=== PATIENT | female | born 1965 | race African-American/Black ===

== ENCOUNTER 2024-12-25 23:27 | Emergency (ER) | payer BC, MEDICAID ==
[~2024-12-25] VITALS: Ht 162.6 cm; Wt 95.0 kg
[2024-12-25 23:35] VITALS: BP 146/70; PULSE 100; O2SAT 97
[2024-12-26 00:37] VITALS: RESP 18
[2024-12-26] MEDS: ketorolac trometh 15mg/ml vial 15 MG/ML ML IM ONE (00:37)
[2024-12-26] MEDS: ondansetron 4mg rapidly disintigrating tab PO ONE (00:37)
== END 2024-12-26 00:58 | disposition home or self-care (01) ==
LOC: ER 23:27
DX: G43.909 Migraine, unspecified, not intractable, without status migrainosus (principal); I10 Essential (primary) hypertension
CPT/HCPCS: 96372; 99283; J1885

== ENCOUNTER 2024-12-26 03:27 | Emergency (ER) | payer BC, MEDICAID ==
[~2024-12-26] VITALS: Ht 162.6 cm; Wt 94.0 kg
[2024-12-26 03:32] VITALS: BP 128/70; PULSE 95; RESP 16; TEMP 98.9; O2SAT 98
--- NOTE | 2024-12-26 05:05 | Physician Documentation ---
History of Present Illness ~ Chief Complaint: Abdominal Pain Stated Complaint: ABD PAIN Time Seen by MD: 03:39 Source: patient Mode of Arrival: Ambulatory Exam Limitations: no limitations HPI Chief Complaint: Tummy ache Caveat: None Independent Historians: None History of Present Illness: Patient is a 59-year-old woman who was just seen here less than 2 hours ago for migraine headache and discharged. At that time she was given Zofran and Toradol for her headache. Patient comes in complaining of a tummy ache. Patient states that after she was discharged she ate some chicken and rice and it made her feel nauseated. Patient complains of mild lower abdominal pain just above the umbilicus. Patient states that she gets this pain frequently both before and after eating. Patient denies any fever. No other acute symptoms since she was just discharged a couple hours ago. Review of systems: All systems were reviewed and are negative except for what is indicated in the history of present illness. Past Medical History: Past Surgical History: Social History: Medications: Reviewed as documented Nursing Notes Allergies: Reviewed as documented in Nursing Notes Medication Reconciliation Allergies: Coded Allergies: prochlorperazine (Verified Allergy, Unknown, 12/26/24) Past Medical History Smoking Status: Current every day smoker Physical Exam Vital Signs: Temperature: 98.9, Source: Temporal, Heart Rate: 95, Respiratory Rate: 16, BP: 128/70, Pulse Oximetry: 98, Weight: 94.000 Oxygen Flow Rate: 0 Progress Results/Orders Results/Orders Vital Signs 12/26/24 03:32 Temp 98.9 Pulse 95 Resp 16 B/P (MAP) 128/70 Pulse Ox 98 O2 Flow Rate 0 Departure Referrals: NO PRIMARY CARE PROVIDER (PCP) BELKIS CERVANTES MD Dec 26, 2024 05:05
== END 2024-12-26 06:35 | disposition home or self-care (01) ==
LOC: ER 03:28
DX: G43.909 Migraine, unspecified, not intractable, without status migrainosus (principal); F17.200 Nicotine dependence, unspecified, uncomplicated
CPT/HCPCS: 99281

== ENCOUNTER 2024-12-28 02:04 | Emergency (ER) | payer BC, MEDICAID ==
[~2024-12-28] VITALS: Ht 162.6 cm; Wt 93.8 kg
[2024-12-28 02:08] VITALS: TEMP 98
[2024-12-28] MEDS: ketorolac trometh 30MG/ML vial 30 MG/ML VIAL IV ONE (03:07)
[2024-12-28] MEDS: metoclopramide 5 mg/ml inj IV ONE (03:07)
[2024-12-28] MEDS: normal saline 1000ml 1,000 ML IV ONE (03:08)
[2024-12-28] MEDS: diphenhydrAMINE 50 mg/ml inj IV ONE (03:08)
[2024-12-28 03:52] VITALS: BP 142/80; PULSE 74; RESP 16; O2SAT 99
== END 2024-12-28 04:14 | disposition home or self-care (01) ==
LOC: ER 02:05
DX: R51.9 Headache, unspecified (principal); Z88.8 Allergy status to other drugs, medicaments and biological substances
CPT/HCPCS: 70450; 96361; 96374; 96375; 99285; J1200; J1885; J2765; J7030

== ENCOUNTER 2025-01-06 09:13 | Emergency (ER) | payer BC, MEDICAID ==
[~2025-01-06] VITALS: Ht 162.6 cm; Wt 70.5 kg
[2025-01-06 09:29] VITALS: BP 165/93; PULSE 79; RESP 18; O2SAT 98
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
[2025-01-06] MEDS: naproxen 500mg tablet PO ONE (10:36)
[2025-01-06] MEDS: acetaminophen 325mg tablet PO ONE (10:37)
[2025-01-06 10:43] VITALS: TEMP 97.4
== END 2025-01-06 10:46 | disposition home or self-care (01) ==
LOC: ER 09:14
DX: M79.605 Pain in left leg (principal); M79.604 Pain in right leg; Z88.8 Allergy status to other drugs, medicaments and biological substances
CPT/HCPCS: 99283

== ENCOUNTER 2025-01-10 04:10 | Emergency (ER) | payer BC, MEDICAID ==
[~2025-01-10] VITALS: Ht 162.6 cm; Wt 96.1 kg
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
--- NOTE | 2025-01-10 04:17 | ELECTROCARDIOGRAPH REPORT ---
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 Rafi Garrett Measurements Intervals [place] Rate: 77 P: 96 AL: 165 QRS: 91 QRSD: 82 T: 50 QT: 357 QTc: 404 Interpretive Statements Sinus rhythm Consider left atrial enlargement Borderline right axis deviation Electronically Signed On 01-10-2025 19:02:[address] Rafi Garrett Please click the below link to view image of tracing.
[2025-01-10] MEDS ORDERED: pantoprazole 40 MG vial IV SCH (04:25)
[2025-01-10] MEDS: meclizine 12.5mg tablet PO ONE (05:26)
--- NOTE | 2025-01-10 05:38 | RADIOLOGY REPORT ---
EXAM: XR Chest, 1 View CLINICAL INDICATION: CP TECHNIQUE: Frontal view of the chest. COMPARISON: None FINDINGS: LUNGS AND PLEURAL SPACES: Mild pulmonary congestion. No consolidation. No pneumothorax. HEART: Unremarkable. No cardiomegaly. MEDIASTINUM: Unremarkable. Normal mediastinal contour. BONES/JOINTS: Unremarkable. No acute fracture. OTHER FINDINGS: . . . IMPRESSION: Mild pulmonary congestion.
[2025-01-10] MEDS: diphenhydrAMINE 50 mg/ml inj IV ONE (06:04)
[2025-01-10] MEDS: pantoprazole 40 MG vial IV ONE (06:04)
[2025-01-10] MEDS: ondansetron/PF 4mg/2ml inj IV ONE (06:04)
[2025-01-10] MEDS: normal saline 1000ml 1,000 ML IV ONE (06:09)
[2025-01-10 06:40] LABS: BASOPHILS # (AUTO) 0.1 X10'3 (0-0.2); BASOPHILS % (AUTO) 0.8 % (0-1); EOSINOPHILS # (AUTO) 0.1 X10'3 (0-0.9); EOSINOPHILS % (AUTO) 1.4 % (0-6); HEMATOCRIT 37.6 % (35.0-45.0); HEMOGLOBIN 12.6 g/dl (12.0-16.0); LYMPHOCYTES # (AUTO) 2.2 X10'3 (1.1-4.8); LYMPHOCYTES % (AUTO) 28.1 % (21-51); MEAN CORPUSCULAR HEMOGLOBIN 33.6 PG (27.0-31.0); MEAN CORPUSCULAR HGB CONC 33.6 g/dL (33.0-36.5); MONOCYTES # (AUTO) 0.6 X10'3 (0-0.9); MONOCYTES % (AUTO) 8.1 % (2-12); NEUTROPHILS # (AUTO) 4.7 X10'3 (1.8-7.7); NEUTROPHILS % (AUTO) 61.6 % (42-75); PLATELET COUNT 211 X10'3 (140-440); RED BLOOD COUNT 3.76 X10'6 (4.20-5.60); RED CELL DISTRIBUTION WIDTH 15.5 % (11.5-14.5); WHITE BLOOD COUNT 7.7 X10'3 (4.5-11.0)
[2025-01-10 07:07] LABS: ALANINE AMINOTRANSFERASE 36 U/L (12-78); ALBUMIN 3.5 G/DL (3.4-5.0); ALKALINE PHOSPHATASE 115 IU/L (46-116); ANION GAP 9 (8-16); ASPARTATE AMINO TRANSFERASE 21 U/L (10-37); BILIRUBIN,TOTAL 0.4 MG/DL (0.1-1.0); BLOOD UREA NITROGEN 18 MG/DL (7-18); BUN/CREATININE RATIO 36.7 (10.0-20.0); CALCIUM 9.4 MG/DL (8.5-10.1); CHLORIDE 108 MMOL/L (99-107); CREATININE 0.49 MG/DL (0.40-0.90); GLUCOSE 86 MG/DL (70-104); POTASSIUM 3.3 MMOL/L (3.5-5.1); SODIUM 147 MMOL/L (135-145); TOTAL CARBON DIOXIDE 29.6 MMOL/L (24-32); eCRCL 108 ML/MIN; eGFR > 90 ML/MIN
[2025-01-10 07:14] LABS: LIPASE 53 U/L (16-77); PRO BRAIN NATRIURETIC PEPTIDE 57 PG/ML (0-125)
[2025-01-10 07:49] LABS: BILIRUBIN,URINE NEGATIVE (Neg); CLARITY,URINE CLEAR (Clear); COLOR,URINE STRAW (Yellow); GLUCOSE, URINE NEGATIVE (Neg); KETONES,URINE NEGATIVE (Neg); LEUKOCYTE ESTERASE ,URINE NEGATIVE (Neg); NITRITES, URINE NEGATIVE (Neg); OCCULT BLOOD,URINE TRACE-INTACT (Neg); PH,URINE 6.5 (4.8-8.0); PROTEIN,URINE NEGATIVE (Neg); URINE AMPHETAMINE SCREEN NEGATIVE (Neg); URINE BARBITUATE SCREEN NEGATIVE (Neg); URINE BENZODIAZEPINES SCREEN NEGATIVE (Neg); URINE CANNABINOID SCREEN POSITIVE (Neg); URINE COCAINE SCREEN NEGATIVE (Neg); URINE METHADONE SCREEN NEGATIVE (Neg); URINE OPIATE SCREEN NEGATIVE (Neg); URINE PHENCYCLIDINE SCREEN NEGATIVE (Neg); UROBILINOGEN,URINE 0.2 E.U/dL (0.2-1.0)
[2025-01-10 08:04] LABS: UA COLLECTION TYPE NON-SPECIFIED
[2025-01-10 08:05] LABS: BACTERIA,URINE NONE SEEN /HPF (Neg); MUCUS STRANDS NONE SEEN /LPF (Neg); RBC,URINE NONE SEEN /HPF (0-2); SQUAMOUS EPITHELIAL CELL,UR FEW /LPF (FEW); WBC,URINE 0-4 /HPF (0-4)
[2025-01-10] MEDS: potassium Cl 20 mEq SR tablet PO STA (09:41)
[2025-01-10] MEDS ORDERED: MECL-302 PO (09:53)
[2025-01-10] MEDS: metoclopramide 5 mg/ml inj IV ONE (10:27)
[2025-01-10] MEDS: ketorolac trometh 30MG/ML vial 30 MG/ML VIAL IV ONE (10:27)
[2025-01-10] MEDS: normal saline 500ml IV soln 500 ML IV ONE (10:29)
[2025-01-10 11:30] VITALS: BP 116/57; PULSE 60; RESP 15; O2SAT 100
[2025-01-11] MEDS ORDERED: CEPH-585 PO (22:30)
[2025-01-11] MEDS ORDERED: IBUP-862 PO (22:30)
== END 2025-01-10 11:28 | disposition home or self-care (01) ==
LOC: ER 04:10
DX: R42 Dizziness and giddiness (principal); G43.909 Migraine, unspecified, not intractable, without status migrainosus; E87.6 Hypokalemia; Z88.8 Allergy status to other drugs, medicaments and biological substances
CPT/HCPCS: 36415; 71045; 80053; 80305; 81001; 83690; 83880; 84484; 85025; 93005; 96361; 96374; 96375; 99285; J1200; J1885; J2405; J2470; J2765; J7030; J7040; J8597

== ENCOUNTER 2025-01-11 15:56 | Outpatient (CLI) | payer BC, MEDICAID ==
[~2025-01-11 15:56] MED LIST: MECL-302 PO
[2025-01-11] MEDS ORDERED: IBUP-862 PO (22:30)
[2025-01-11] MEDS ORDERED: CEPH-585 PO (22:30)
--- NOTE | 2025-01-12 00:19 | RADIOLOGY REPORT ---
CLINICAL INDICATION: LEFT FOOT PAIN TECHNIQUE: DI FOOT, COMPLETE (3VW MIN) Comparison: None FINDINGS/IMPRESSION: : There is no evidence of acute fracture or dislocation. Minimal plantar and retrocalcaneal enthesopathy. Soft tissues are unremarkable.
== END 2025-01-11 23:59 | disposition home or self-care (01) ==
LOC: RAD 15:56
PROVIDERS: ATTEND Family Medicine
DX: M79.672 Pain in left foot (principal)
CPT/HCPCS: 73630

== ENCOUNTER 2025-01-11 20:55 | Emergency (ER) | payer BC, MEDICAID ==
[~2025-01-11] VITALS: Ht 162.6 cm; Wt 100.9 kg
[2025-01-11] MEDS ORDERED: IBUP-862 PO (22:30)
[2025-01-11] MEDS ORDERED: CEPH-585 PO (22:30)
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
[2025-01-11 23:04] VITALS: BP 158/82; PULSE 99; RESP 20; TEMP 98.6; O2SAT 99
== END 2025-01-11 23:07 | disposition home or self-care (01) ==
LOC: ER 20:56
DX: L03.114 Cellulitis of left upper limb (principal); L03.113 Cellulitis of right upper limb; Z88.2 Allergy status to sulfonamides
CPT/HCPCS: 99283

== ENCOUNTER 2025-01-15 21:05 | Emergency (ER) | payer BC, MEDICAID ==
[~2025-01-15] VITALS: Ht 162.6 cm; Wt 92.2 kg
[~2025-01-15 21:05] MED LIST changes: +CEPH-585 PO; +IBUP-862 PO
[2025-01-15] MEDS ORDERED: CEPH500C2 PO (21:58)
--- NOTE | 2025-01-15 21:59 | Physician Documentation ---
History of Present Illness General Chief Complaint: Hand pain Stated Complaint: SWOLLEN HAND Time Seen by MD: 21:34 Primary Medical Doctor: [facility] History of Present Illness Initial Comments 59-year-old female request breakthrough antibiotic due to having difficulties obtaining prescriptions from the [facility] where she was staying. Denies fever or recent illness or injury. She was small abscesses to the dorsum of each hand without restricted range of motion is grossly neurologically intact. Medication Reconciliation Allergies: Coded Allergies: Sulfa (Sulfonamide Antibiotics) (Unverified Allergy, Unknown, 01/11/25) prochlorperazine (Verified Allergy, Unknown, 01/11/25) Scheduled Cephalexin Monohydrate (Cephalexin), 1 CAP PO Q8H Cephalexin*Monohydrate* (Keflex*), 1 CAP PO Q6H Ibuprofen (Ibu), 1 TAB PO Q6H Meclizine HCl (Meclizine HCl), 1 TAB PO TID PRN Review of Systems All Other Systems at this time: Reviewed and Negative Constitutional: Denies: fever, chills Musc: Reports: swelling Integ: Reports: lesions Physical Exam Physical Exam Vital Signs: RN Vital Signs have been reviewed: Yes, Temperature: 97.4, Source: Temporal, Heart Rate: 93, Respiratory Rate: 12, BP: 154/90, Pulse Oximetry: 96, Weight: 92.150 General Appearance: alert, WD/WN, no apparent distress Head: normal inspection Face: normal inspection Pupils/EOM/Fundus: PERRLA Respiratory: no respiratory distress Cardiovascular: regular rate, rhythm Extremities: normal range of motion Extremities To 0.5 cm indurated areas of the dorsum of both hands without restricted range of motion, fluctuance on a mild erythemic base. Neurologic: oriented x4 Psychiatric: normal mood/affect Skin: other (See above) Progress Results/Orders Results/Orders Completed Orders - JOHAN MCMULLEN Cephalexin Capsule (Keflex Capsule) (01/15/25 22:00) Vital Signs 01/15/25 01/15/25 21:11 22:17 Temp 97.4 97.8 Pulse 93 76 Resp 12 12 B/P (MAP) 154/90 128/72 Pulse Ox 96 99 Medical Decision Making Differential Diagnosis 51-year-old female taking in cephalexin for small abscesses to both hands not needing incision and drainage with while cellulitis he is having difficulty obtaining her prescriptions from the [facility]. He is requesting a breakthrough dose of cephalexin tonight and a new prescription to be forward to the pharmacy. Continues to have no indication for incision and drainage. Provided patient with cephalexin one time dose. Excellent cap refill, grossly neurologically intact without restricted range of motion and prescription forwarded to pharmacy. Additional information regarding [facility] and [facility] services provided for patient. She was very pleased was discharged safe stable condition. Departure Disposition: HOME / SELF CARE / HOMELESS Impression: Primary Impression: Cellulitis of hand Condition: Improved Additional Instructions: Please begin medication as directed. Follow up with the [facility] and the [employer] fan for further medication refills. I provided you with a handout. Thank you for visiting emergency department [facility]. Referrals: NO PRIMARY CARE PROVIDER (PCP) Prescriptions Cephalexin Monohydrate (Cephalexin) 500 Mg Capsule 1 CAP PO Q8H for 10 Days, #30 CAP Prov: JOHAN MCMULLEN 01/15/25 Education Educated: Patient Educated regarding: diagnosis, treatment Signature Scribe Signature: . Attestation: . JOHAN MCMULLEN January 15, 2025 21:58
[2025-01-15] MEDS ORDERED: cephalexin 250mg capsule PO ONE (22:00)
[2025-01-15 22:17] VITALS: BP 128/72; PULSE 76; RESP 12; TEMP 97.8; O2SAT 99
== END 2025-01-15 22:20 | disposition home or self-care (01) ==
LOC: ER 21:06
DX: L03.114 Cellulitis of left upper limb (principal); L03.113 Cellulitis of right upper limb; Z88.2 Allergy status to sulfonamides
CPT/HCPCS: 99283

== ENCOUNTER 2025-01-17 22:11 | Emergency (ER) | payer BC, MEDICAID ==
[~2025-01-17] VITALS: Ht 162.6 cm; Wt 92.0 kg
[~2025-01-17 22:11] MED LIST changes: +CEPH500C2 PO
[2025-01-17 22:15] VITALS: BP 158/80; PULSE 88; RESP 16; TEMP 98.6; O2SAT 94
== END 2025-01-18 00:13 | disposition left against medical advice (07) ==
LOC: ER 22:12
DX: G43.909 Migraine, unspecified, not intractable, without status migrainosus (principal); Z88.2 Allergy status to sulfonamides; Z53.21 Procedure and treatment not carried out due to patient leaving prior to being seen by health care provider

== ENCOUNTER 2025-02-18 08:40 | Emergency (ER) | payer BC, MEDICAID ==
[~2025-02-18] VITALS: Ht 162.6 cm; Wt 91.6 kg
[~2025-02-18 08:40] MED LIST changes: -CEPH-585 PO; -CEPH500C2 PO
[2025-02-18 08:45] VITALS: TEMP 97.7
--- NOTE | 2025-02-18 09:46 | Physician Documentation ---
History of Present Illness ~ Chief Complaint: Allergic Reaction Stated Complaint: ALLERGIC REACTION Time Seen by MD: 09:46 OK to notify your PCP?: Yes Primary Medical Doctor: [facility] Source: patient Mode of Arrival: EMS Exam Limitations: no limitations HPI 59-year-old female with past medical history of upper back, left leg fracture , rectal bleeding presented to the ER with chief complaints of facial puffiness with swollen eyelids. Endorses swelling of both upper, lower eyelids and right- hand for the past one day, started on yesterday morning after taking IV Flexeril at [facility] for upper backache on Friday. Endorses itching and rash surrounding the area of swelling on face. She has being getting allergic reaction after coming to [place] in December. She denies shortness of breath, fever, wheeze, got getting sounds, stridor. Medication Reconciliation Allergies: Coded Allergies: Sulfa (Sulfonamide Antibiotics) (Unverified Allergy, Unknown, 02/18/25) prochlorperazine (Verified Allergy, Unknown, 02/18/25) Scheduled Diphenhydramine HCl (Benadryl), 1 CAP PO BID Famotidine (Famotidine), 1 TAB PO DAILY Meclizine HCl (Meclizine HCl), 1 TAB PO TID PRN Naproxen (Naproxen), 1 TAB PO Q12H Prednisone (Prednisone), 40 MG PO DAILY Discontinued Medications Ibuprofen (Ibu), 1 TAB PO Q6H Past Medical History Past Medical History: GI Bleed, Chronic Back Pain, Extremity Fracture Other Past Medical History: Left leg fracture treated with boot. Past Surgical History: no surgical history Patient History: Patient reports no known family medical history. Smoking Status: Current every day smoker Alcohol Use: Occasionally Drug Use: marijuana Lives with: Alone Lives In: Other Past Social History: She lives in [place]. Review of Systems All Other Systems at this time: Reviewed and Negative ROS Reviewed in full and negative except positive pertinent in HPI Physical Exam Vital Signs: RN Vital Signs have been reviewed: Yes, Temperature: 97.7, Source: Oral, Heart Rate: 78, Respiratory Rate: 16, BP: 139/82, Pulse Oximetry: 100, Weight: 91.600 Oxygen Flow Rate: 0 General Appearance General: Awake and Alert, oriented to time place person. no acute distress. Bilateral upper and lower lids are swollen. Facial puffiness. HEENT: Conjunctiva pink, Sclera clear, Mucus Membranes moist. Neck: Supple without masses and tenderness. no midline tenderness on palpation or with full ROM Resp: Unlabored. Lungs clear to auscultation bilaterally. Heart: Regular Rate and rhythm, normal S1 and S2 without murmur, rub or gallop. Abdomen: Soft and non tender no organomegaly no signs of trauma Extremities: No cyanosis,clubbing or edema. Right hand swelling. Skin: Warm and Dry. Neuro: GCS 15; no focal deficits Progress Results/Orders Reviewed/noted all lab results: Yes Results/Orders Vital Signs 02/18/25 02/18/25 02/18/25 02/18/25 08:45 08:55 10:30 13:18 Temp 97.7 Pulse 78 88 81 Resp 16 16 16 16 B/P (MAP) 139/82 142/71 (94) 159/76 Pulse Ox 100 99 96 O2 Flow Rate 0 0 Laboratory Tests Test 02/18/25 10:17 White Blood Count 6.4 Red Blood Count 3.95 L Hemoglobin 12.8 Hematocrit 39.0 Mean Corpuscular Volume 98.7 H Mean Corpuscular Hemoglobin 32.5 H Mean Corpuscular Hemoglobin Concent 32.9 L Red Cell Distribution Width 16.3 H Platelet Count 296 Mean Platelet Volume 7.9 Neutrophils (%) (Auto) 46.4 Lymphocytes (%) (Auto) 35.6 Monocytes (%) (Auto) 7.3 Eosinophils (%) (Auto) 9.4 H Basophils (%) (Auto) 1.3 H Neutrophils # (Auto) 3.0 Lymphocytes # (Auto) 2.3 Monocytes # (Auto) 0.5 Eosinophils # (Auto) 0.6 Basophils # (Auto) 0.1 CBC Comment Erythrocyte Sedimentation Rate 31 H Sodium Level 143 Potassium Level 4.2 Chloride Level 108 H Carbon Dioxide Level 28.9 Anion Gap 6 L Blood Urea Nitrogen 9 Creatinine 0.54 Estimated GFR/1.73 m2 > 90 BUN/Creatinine Ratio 16.7 Glucose Level 79 Calcium Level 8.8 Total Bilirubin 0.4 Aspartate Amino Transf (AST/SGOT) 27 Alanine Aminotransferase (ALT/SGPT) 32 Alkaline Phosphatase 114 C-Reactive Protein 0.32 Total Protein 7.1 Albumin 2.9 L Globulin 4.2 Albumin/Globulin Ratio 0.7 L Thyroid Stimulating Hormone (TSH) 0.75 Chemistry Comments Re-Evaluation Re-Evaluation : Re-Evaluation: Improved Progress Patient was seen by the resident. Patient received H1 H2 blockers steroids laboratory work obtained reassuring showed some improvement and was ultimately discharged. Medical Decision Making Findings Allergic reactions secondary to possible Flexeril/unknown cause Received a 50 mg of Benadryl in EMS Evaluate with CBC, CMP, ESR, CRP to rule out autoimmune diseases considering her background of multiple joint pains. CBC and CMP ease not compressive. ESR is 31, CRP is normal TSH- normal Treated with Kenalog 40 mg IM is, famotidine 20 mg Discharged with naproxen 500 b.i.d. p.r.n. foot pain, Benadryl 25 b.i.d., famotidine 40 mg, prednisone 40 mg Discontinue Flexeril and ibuprofen. Differential Dx:Considerations: Include: Anaphylaxis, Angioedema, Drug reaction, Urticaria Departure Disposition: HOME / SELF CARE / HOMELESS Impression: Primary Impression: Acute allergic reaction Qualified Codes: T78.40XA - Allergy, unspecified, initial encounter Condition: Stable Additional Instructions: Follow up with primary care physician in one week for upper back pain. Referrals: NO PRIMARY CARE PROVIDER (PCP) Prescriptions Naproxen (Naproxen) 500 Mg Tablet 1 TAB PO Q12H for pain for 30 Days, #60 TAB 0 Refills Prov: PEPITO CANSECO RES 02/18/25 Prednisone (Prednisone) 10 Mg Tablet 40 MG PO DAILY for 5 Days, #20 TABLET PREDNISONE 40 MG P.O. DAILY FOR FIVE DAYS Prov: PEPITO CANSECO RES 02/18/25 Famotidine (Famotidine) 40 Mg Tablet 1 TAB PO DAILY for 5 Days, #5 TAB 0 Refills Prov: PEPITO CANSECO RES 02/18/25 Diphenhydramine HCl (Benadryl) 25 Mg Capsule 1 CAP PO BID for 5 Days, #5 CAP 0 Refills Prov: PEPITO CANSECO RES 02/18/25 Education Educated: Patient Educated regarding: diagnosis Signature Scribe Signature: The note accurately reflects work and decisions made by me.Pepito Canseco - Resident 02/18/25 10:59 Attestation: The note accurately reflects work and decisions made by me.Pepito Canseco - Resident 02/18/25 10:59 PEPITO CANSECO, RES Feb 18, 2025 09:46 HIGINIO SORTO MD Feb 21, 2025 03:11
--- NOTE | 2025-02-18 09:52 | Physician Documentation ---
History of Present Illness ~ Chief Complaint: Allergic Reaction Stated Complaint: ALLERGIC REACTION Time Seen by MD: 09:19 OK to notify your PCP?: Yes Primary Medical Doctor: [facility] Medication Reconciliation Allergies: Coded Allergies: Sulfa (Sulfonamide Antibiotics) (Unverified Allergy, Unknown, 02/18/25) prochlorperazine (Verified Allergy, Unknown, 02/18/25) Scheduled Ibuprofen (Ibu), 1 TAB PO Q6H Meclizine HCl (Meclizine HCl), 1 TAB PO TID PRN Physical Exam Vital Signs: Temperature: 97.7, Source: Oral, Heart Rate: 78, Respiratory Rate: 16, BP: 139/82, Pulse Oximetry: 100, Weight: 91.600 Oxygen Flow Rate: 0 Progress Results/Orders Results/Orders Vital Signs 02/18/25 02/18/25 08:45 08:55 Temp 97.7 Pulse 78 Resp 16 16 B/P (MAP) 139/82 Pulse Ox 100 O2 Flow Rate 0 Departure Referrals: NO PRIMARY CARE PROVIDER (PCP) Signature Attestation: The note accurately reflects work and decisions made by me.Rafi Sorto MD 02/18/25 09:19 RAFI SORTO MD Feb 18, 2025 09:52
[2025-02-18] MEDS: famotidine 20mg tablet PO ONE (10:25)
[2025-02-18] MEDS: triamcinolone acetonide 40mg/ml inj IM ONE (10:25)
[2025-02-18 10:29] LABS: BASOPHILS # (AUTO) 0.1 X10'3 (0-0.2); BASOPHILS % (AUTO) 1.3 % (0-1); EOSINOPHILS # (AUTO) 0.6 X10'3 (0-0.9); EOSINOPHILS % (AUTO) 9.4 % (0-6); HEMOGLOBIN 12.8 g/dl (12.0-16.0); LYMPHOCYTES # (AUTO) 2.3 X10'3 (1.1-4.8); LYMPHOCYTES % (AUTO) 35.6 % (21-51); MEAN CORPUSCULAR HEMOGLOBIN 32.5 PG (27.0-31.0); MEAN CORPUSCULAR HGB CONC 32.9 g/dL (33.0-36.5); MEAN CORPUSCULAR VOLUME 98.7 FL (78-98); MEAN PLATELET VOLUME 7.9 FL (7.4-10.4); MONOCYTES # (AUTO) 0.5 X10'3 (0-0.9); MONOCYTES % (AUTO) 7.3 % (2-12); NEUTROPHILS % (AUTO) 46.4 % (42-75); PLATELET COUNT 296 X10'3 (140-440); RED BLOOD COUNT 3.95 X10'6 (4.20-5.60); RED CELL DISTRIBUTION WIDTH 16.3 % (11.5-14.5); WHITE BLOOD COUNT 6.4 X10'3 (4.5-11.0)
[2025-02-18 10:39] LABS: ALANINE AMINOTRANSFERASE 32 U/L (12-78); ALBUMIN 2.9 G/DL (3.4-5.0); ALBUMIN/GLOBULIN RATIO 0.7 (1.1-1.5); ALKALINE PHOSPHATASE 114 IU/L (46-116); ANION GAP 6 (8-16); ASPARTATE AMINO TRANSFERASE 27 U/L (10-37); BILIRUBIN,TOTAL 0.4 MG/DL (0.1-1.0); BLOOD UREA NITROGEN 9 MG/DL (7-18); BUN/CREATININE RATIO 16.7 (10.0-20.0); CALCIUM 8.8 MG/DL (8.5-10.1); CHLORIDE 108 MMOL/L (99-107); CREATININE 0.54 MG/DL (0.40-0.90); GLUCOSE 79 MG/DL (70-104); POTASSIUM 4.2 MMOL/L (3.5-5.1); SODIUM 143 MMOL/L (135-145); TOTAL CARBON DIOXIDE 28.9 MMOL/L (24-32); TOTAL PROTEIN 7.1 G/DL (6.4-8.2); eCRCL 98 ML/MIN; eGFR > 90 ML/MIN
[2025-02-18 10:48] LABS: C-REACTIVE PROTEIN 0.32 MG/DL (0.0-0.5); THYROID STIMULATING HORMONE 0.75 ulU/ml (0.34-4.50)
[2025-02-18] MEDS ORDERED: NAPR-1168 PO (11:40)
[2025-02-18] MEDS ORDERED: PRED10TA23 PO (11:40)
[2025-02-18] MEDS ORDERED: FAMO40TA8 PO (11:40)
[2025-02-18] MEDS ORDERED: DIPH25CA83 PO (11:40)
[2025-02-18 13:18] VITALS: BP 159/76; PULSE 81; RESP 16; O2SAT 96
== END 2025-02-18 13:20 | disposition home or self-care (01) ==
LOC: ER 08:40
DX: T78.40XA Allergy, unspecified, initial encounter (principal); F12.90 Cannabis use, unspecified, uncomplicated; F17.200 Nicotine dependence, unspecified, uncomplicated; Z88.2 Allergy status to sulfonamides; Z88.8 Allergy status to other drugs, medicaments and biological substances; X58.XXXA Exposure to other specified factors, initial encounter
CPT/HCPCS: 80053; 84443; 85025; 85651; 86140; 96372; 99284; J3301

== ENCOUNTER 2025-03-01 20:56 | Emergency (ER) | payer BC, MEDICAID ==
[~2025-03-01] VITALS: Ht 162.6 cm; Wt 81.6 kg
[~2025-03-01 20:56] MED LIST changes: +DIPH25CA83 PO; +FAMO40TA8 PO; -IBUP-862 PO; +NAPR-1168 PO
[2025-03-01 21:04] VITALS: BP 148/119; PULSE 111; RESP 16; TEMP 97; O2SAT 98
--- NOTE | 2025-03-01 23:56 | Physician Documentation ---
HPI ~ General Chief Complaint: Medication Request Stated Complaint: JENNIFER ELMORE Time Seen by MD: 23:35 Primary Medical Doctor: Oralia Ludwig History of Present Illness HPI Comments This is a 59-year-old un housed female who presents with frequently changing medical concerns and requests, patient has requested Seroquel to help her sleep and soda or juice, patient additionally discusses migraine headaches however does not report currently having a migraine headache, patient is not voicing any HI or SI,. When question on previous dosing for Seroquel patient reports that she has not had it in a long time and that she normally gets it as an injection. Patient does not appear to have an active medical complaint or concern and appears to be seeking food as when asked to clarify what we can help her with today she says I do not know nothing I will just leave, going to have some juice or soda?. Medication Reconciliation Allergies: Coded Allergies: Sulfa (Sulfonamide Antibiotics) (Verified Allergy, Unknown, 03/02/25) prochlorperazine (Verified Allergy, Unknown, 03/02/25) Scheduled Diphenhydramine HCl (Benadryl), 1 CAP PO BID Famotidine (Famotidine), 1 TAB PO DAILY Meclizine HCl (Meclizine HCl), 1 TAB PO TID PRN Naproxen (Naproxen), 1 TAB PO Q12H Discontinued Medications Prednisone (Prednisone), 40 MG PO DAILY Discontinued Reason: Auto Discontinued Past Medical History Past Medical History: GI Bleed, Chronic Back Pain, Extremity Fracture Past Surgical History: no surgical history Patient History: Patient reports no known family medical history. Alcohol Use: Occasionally Drug Use: marijuana Lives with: Alone Lives In: Other Past Social History: She lives in [place]. Review of Systems ROS As stated above in the HPI, otherwise all systems are reviewed and negative. Physical Exam Physical Exam Vital Signs: Temperature: 97.0, Source: Temporal, Heart Rate: 111, Respiratory Rate: 16, BP: 148/119, Pulse Oximetry: 98, Weight: 81.600 Oxygen Flow Rate: 0 Physical Exam VITALS: Reviewed and as above. GENERAL: Alert, nontoxic appearing, no apparent distress. RESPIRATORY: No increased work of breathing, no respiratory distress, speaking in full clear sentences Progress Results/Orders Results/Orders Vital Signs 03/01/25 21:04 Temp 97.0 Pulse 111 Resp 16 B/P (MAP) 148/119 Pulse Ox 98 O2 Flow Rate 0 Laboratory Tests Test 03/01/25 21:18 Glucometer 115 H Medical Decision Making Findings This 59-year-old un housed female presented without clear medical concerns or requests, it appears patient is seeking food, patient did request Seroquel to help her sleep however is unable to articulate previous dosages or prescriptions for this medication so a refill will not be provided, patient advised to follow up with [facility] for primary care. Patient is otherwise well-appearing with no acute medical concerns or complaints and benign physical exam, patient is appropriate for outpatient follow up. Differential Dx:Considerations: Include: Adverse circumstances, Economic, Psychosocial, Medical services unavail., Medication refill, Medication non- compliance, Other (Gravely disabled, SI, HI, homeless, malingering, hungry) Departure Time of Disposition: 23:57 Disposition: 01 HOME / SELF CARE / HOMELESS Impression: Primary Impression: General medical exam Condition: Improved Additional Instructions: I am unable to refill your Seroquel prescription tonight as you are unable to provide information I need to refill this prescription, please follow up with the [facility] for management of your medications outpatient. Please return to the emergency department for any new or worsening concerning symptoms. Referrals: NO PRIMARY CARE PROVIDER (PCP) Education Educated: Patient Educated regarding: diagnosis, treatment, prognosis, need for follow up Signature Scribe Signature: No scribe Attestation: The note accurately reflects work and decisions made by me.LUZ Crabtree 03/02/25 02:10 KEY LANDRUM Mar 01, 2025 23:56
[2025-03-02] MEDS ORDERED: QUET50TA PO (02:15)
== END 2025-03-02 00:01 | disposition home or self-care (01) ==
LOC: ER 20:57
DX: Z00.8 Encounter for other general examination (principal); Z88.2 Allergy status to sulfonamides; Z88.8 Allergy status to other drugs, medicaments and biological substances; Z79.899 Other long term (current) drug therapy
CPT/HCPCS: 82948; 99282

== ENCOUNTER 2025-03-02 01:06 | Emergency (ER) | payer BC, MEDICAID ==
[~2025-03-02] VITALS: Ht 170.2 cm; Wt 82.7 kg
[2025-03-02] MEDS: quetiapine 100mg tablet PO STA (01:53)
--- NOTE | 2025-03-02 02:12 | Physician Documentation ---
HPI ~ General Chief Complaint: Medication Request Stated Complaint: SLEEP ISSUES Time Seen by MD: 02:11 Primary Medical Doctor: Oralia Ludwig History of Present Illness HPI Comments Patient presents to the emergency room with complaints of insomnia and request for Seroquel. This was said to the triage nurse however upon questioning patient just wants to sleep and states that she needs to sleep well and would like a blanket. Medication Reconciliation Allergies: Coded Allergies: Sulfa (Sulfonamide Antibiotics) (Verified Allergy, Unknown, 03/02/25) prochlorperazine (Verified Allergy, Unknown, 03/02/25) Scheduled Diphenhydramine HCl (Benadryl), 1 CAP PO BID Famotidine (Famotidine), 1 TAB PO DAILY Meclizine HCl (Meclizine HCl), 1 TAB PO TID PRN Naproxen (Naproxen), 1 TAB PO Q12H Discontinued Medications Prednisone (Prednisone), 40 MG PO DAILY Discontinued Reason: Auto Discontinued Past Medical History Past Medical History: GI Bleed, Chronic Back Pain, Extremity Fracture Past Surgical History: no surgical history Patient History: Patient reports no known family medical history. Alcohol Use: Occasionally Drug Use: marijuana Lives with: Alone Lives In: Other Past Social History: She lives in [place]. Review of Systems ROS All review of systems negative except as per HPI Physical Exam Physical Exam Vital Signs: Temperature: 98.1, Source: Temporal, Heart Rate: 91, Respiratory Rate: 16, BP: 156/70, Pulse Oximetry: 96, Weight: 82.700 Oxygen Flow Rate: 0 Physical Exam General: Patient is sleeping, easily arousable and not very cooperative in no acute distress Head: Normocephalic and atraumatic. Eyes: Conjunctival normal. EOMI. PERRL. ENT: Mucous membranes moist. Neck: Supple, trachea is midline. Chest: Clear to auscultation bilaterally without rales, rhonchi, or wheezes. There is no accessory muscle use or retractions. Cardiac: RRR without murmurs, gallops, or rubs. Abd: Soft, nondistended, nontender, with normoactive bowel sounds. No guarding, rebound, or rigidity. Extremities: Noted walking boot and patient's left foot Progress Results/Orders Results/Orders Completed Orders - SAGAR JARRETT MD Quetiapine Fumarate Tablet (Seroquel) (03/02/25 21:00) Quetiapine Fumarate Tablet (Seroquel) (03/02/25 01:29) Medications Received in ER Medications (Trade) Dose Ordered Sig/Sole Route PRN Reason Start Time Stop Time Status Last Admin Dose Admin (Seroquel) 50 mg NOW STAT PO 03/02/25 01:29 03/02/25 01:32 DC 03/02/25 01:53 50 MG Vital Signs 03/02/25 01:11 Temp 98.1 Pulse 91 Resp 16 B/P (MAP) 156/70 Pulse Ox 96 O2 Flow Rate 0 Medical Decision Making Findings Patient presents to the emergency room with request for Seroquel as per HPI. She was seen here earlier today. I do not feel she is suffering a medical emergency and does not require emergent labs or imaging. Departure Disposition: HOME / SELF CARE / HOMELESS Impression: Primary Impression: Insomnia Condition: Stable Discharge Instructions: Insomnia Referrals: NO PRIMARY CARE PROVIDER (PCP) Prescriptions Quetiapine Fumarate (Seroquel) 50 Mg Tablet 1 TAB PO HS, #5 TAB 0 Refills Prov: SAGAR JARRETT MD 03/02/25 Signature Scribe Signature: No scribe Attestation: The note accurately reflects work and decisions made by me.Sagar Jarrett MD 03/02/25 02:16 SAGAR JARRETT MD Mar 02, 2025 02:12
[2025-03-02] MEDS ORDERED: QUET50TA PO (02:15)
[2025-03-02 02:45] VITALS: BP 132/82; PULSE 82; RESP 18; TEMP 98.3; O2SAT 99
[2025-03-02] MEDS ORDERED: quetiapine 100mg tablet PO SCH (21:00)
== END 2025-03-02 02:48 | disposition home or self-care (01) ==
LOC: ER 01:07
DX: G47.00 Insomnia, unspecified (principal); Z88.2 Allergy status to sulfonamides; Z88.8 Allergy status to other drugs, medicaments and biological substances; F12.90 Cannabis use, unspecified, uncomplicated
CPT/HCPCS: 99283

== ENCOUNTER 2025-04-13 16:45 | Emergency (ER) | payer BC, MEDICAID ==
[~2025-04-13] VITALS: Ht 162.6 cm; Wt 79.5 kg
[2025-04-13 16:49] VITALS: BP 139/83; PULSE 87; RESP 15; O2SAT 98
== END 2025-04-13 19:02 | disposition left against medical advice (07) ==
LOC: ER 16:46
DX: R10.9 Unspecified abdominal pain (principal); Z53.21 Procedure and treatment not carried out due to patient leaving prior to being seen by health care provider

== ENCOUNTER 2025-04-13 19:24 | Emergency (ER) | payer BC, MEDICAID ==
[~2025-04-13] VITALS: Ht 167.6 cm; Wt 64.0 kg
[2025-04-13 20:25] LABS: MEAN PLATELET VOLUME 8.2 FL (7.4-10.4); RED CELL DISTRIBUTION WIDTH 16.3 % (11.5-14.5)
[2025-04-13 20:44] LABS: CREATININE 0.76 MG/DL (0.40-0.90); TOTAL CARBON DIOXIDE 29.2 MMOL/L (24-32); eCRCL 76 ML/MIN; eGFR > 90 ML/MIN
--- NOTE | 2025-04-13 20:44 | Physician Documentation ---
History of Present Illness Chief Complaint: Abdominal Pain Stated Complaint: ABDOMINAL PAIN Time Seen by MD: 19:35 Primary Medical Doctor: Oralia Sanchez This is a 59-year-old female who presents for evaluation of periumbilical abdominal pain that has been present for several days accompanied by nausea and vomiting. No obvious trigger provocation. The particular palliating or aggravating factors. Did not attempt to treat it. Denies any fever, chills, chest pain, difficulty breathing. Does have history of migraines, she has been seen for migraine at [facility] four days ago. She smokes, denies use of alcohol or illicit substances. Medication Reconciliation Allergies: Coded Allergies: Sulfa (Sulfonamide Antibiotics) (Verified Allergy, Unknown, 04/13/25) prochlorperazine (Verified Allergy, Unknown, 04/13/25) Scheduled Diphenhydramine HCl (Benadryl), 1 CAP PO BID Famotidine (Famotidine), 1 TAB PO DAILY Meclizine HCl (Meclizine HCl), 1 TAB PO TID PRN Naproxen (Naproxen), 1 TAB PO Q12H Quetiapine Fumarate (Seroquel), 1 TAB PO HS Past Medical History Past Medical History: GI Bleed, Chronic Back Pain, Extremity Fracture Past Surgical History: no surgical history Patient History: Patient reports no known family medical history. Alcohol Use: Occasionally Drug Use: marijuana Lives with: Alone Lives In: Other Past Social History: She lives in [place]. Review of Systems ROS 10 point review of systems was performed and unless noted above in HPI is negative for acute process/complaint. Physical Exam Vital Signs: Temperature: 97.6, Source: Temporal, Heart Rate: 102, Respiratory Rate: 15, BP: 134/85, Pulse Oximetry: 97, Weight: 64.000 Physical Exam GENERAL: Awake, alert, oriented, GCS 15, no apparent distress, non-toxic appearing, answers questions, follows commands appropriately. HEENT: Atraumatic, normocephalic, pupils equal, extraocular muscles intact, sclerae anicteric, mucus membranes moist, oropharynx is clear, no stridor. NECK: supple, full active range of motion, trachea midline, no thyromegaly, no lymphadenopathy, no JVD. CARDIOVASCULAR: regular rate/rhythm, no murmurs/gallops/rubs, Pulses are 2+ in all extremities and symmetric. Capillary refill less than 2 seconds. PULMONARY: Nonlabored, good air movement ,no respiratory distress, speaking in full sentences, clear to auscultation bilaterally, no wheezing, no ronchi, no rales, no accessory muscle use. GASTROINTESTINAL: Soft, periumbilical tenderness to palpation reproducing chief complaint, non-distended, normal active bowel sounds, no organomegaly, no pulsatile masses, no CVA tenderness. NEUROLOGIC: Lucid with normal mental status. Normal facial symmetry. Moves all extremities symmetrically and with purpose. No truncal ataxia. Speech is fluid without evidence of dysarthria or aphasia, no focal deficits appreciated. MUSCULOSKELETAL: There is full range of motion of all extremities. There is no joint pain or joint swelling or joint erythema. There is no muscle pain or tenderness or swelling. EXTREMITIES: warm, well-perfused, no cyanosis, no clubbing, no edema, no acute deformities. Skin: warm, dry, no rashes or lesions, no jaundice, no petechiae orpurpura. No ecchymosis. PSYCHIATRIC: Normal affect, normal insight, normal concentration. Focused exam: [] No guarding or rebound Progress Results/Orders Results/Orders Orders - EVAN MELENDEZ DO ESR (04/13/25 20:05) Lipase (04/13/25 20:05) C-Reactive Protein (04/13/25 20:05) Pt Inr (04/13/25 20:05) PTT (04/13/25 20:05) Urinalysis, Cult If Indicated (04/13/25 20:05) PBNP (04/13/25 20:05) MG (04/13/25 20:05) Monitor (04/13/25 20:05) Saline Lock (04/13/25 20:05) Ct Abdomen Pelvis (04/13/25 20:05) Hs Troponin I W Calculations (04/13/25 20:05) CMP (04/13/25 20:05) Diatr Meglu/Diatrizoate 30ml (Gastrograf (04/13/25 20:05) Completed Orders - EVAN MELENDEZ DO Cbc/Diff (04/13/25 20:05) Normal Saline 1000ml (0.9% Sodium Chlori (04/13/25 20:05) Ketorolac Trometh 30mg/Ml Vial (Toradol (04/13/25 20:05) Ondansetron Inj. (Zofran 4mg/2ml Vial) (04/13/25 20:05) Vital Signs 04/13/25 19:35 Temp 97.6 Pulse 102 Resp 15 B/P (MAP) 134/85 Pulse Ox 97 Laboratory Tests Test 04/13/25 20:18 White Blood Count 10.9 Red Blood Count 3.96 L Hemoglobin 13.3 Hematocrit 38.6 Mean Corpuscular Volume 97.4 Mean Corpuscular Hemoglobin 33.5 H Mean Corpuscular Hemoglobin Concent 34.4 Red Cell Distribution Width 16.3 H Platelet Count 193 Mean Platelet Volume 8.2 Neutrophils (%) (Auto) 59.5 Lymphocytes (%) (Auto) 29.7 Monocytes (%) (Auto) 8.5 Eosinophils (%) (Auto) 1.5 Basophils (%) (Auto) 0.8 Neutrophils # (Auto) 6.5 Lymphocytes # (Auto) 3.2 Monocytes # (Auto) 0.9 Eosinophils # (Auto) 0.2 Basophils # (Auto) 0.1 CBC Comment Coagulation Comments Chemistry Comments Medical Decision Making Findings Facility Status: ED Holds, [facility] process The plan was discussed with the patient, who demonstrates clear understanding of the plan and is in agreement with the plan unless otherwise noted in the chart. All questions have been answered, all concerns were addressed unless otherwise documented. I was available throughout their ED stay for frequent reassessment and questions. Differential Diagnoses (considered and possible or likely): [Differential diagnosis considered includes acute appendicitis, acute cholecystitis, pancreatitis, gastritis, PUD, diverticulitis, mesenteric ischemia, abdominal aortic aneurysm, bowel obstruction, enteritis, colitis, fecal impaction, volvulus, IBS, inflammatory bowel disease, specific food intolerance, peritonitis, perforated viscous, malignancy, UTI, abscess, and abdominal pain NOS. Pelvic source of pain was also considered including endometritis, dysmenorrhea, ovarian cyst, ovarian torsion, PID, TOA, cervicitis, vaginitis, or uterine fibroid. History, physical exam, and workup exclude many of the more serious causes listed above. ] ??Differential Diagnoses (considered and unlikely, not requiring evaluation currently): [See above] MDM Data Please see HPI for the following: Independent Historians and external Records Review. Historian: [Patient] Independent Historians: ?[Record review] Medication Management: [Reviewed medication list] Social History and determinants: [Reviewed] Please see the body of the note for the following: Any independent interpretations of ECG, imaging studies. All vitals signs/haemodynamics, ordered tests were independently reviewed and interpreted by myself. Nursing triage complaint and vitals reviewed, additional nursing notes were reviewed as available and I agree unless otherwise noted or documented in contradiction in the chart Vital Signs: Independently reviewed Labs: Independently interpreted Imaging: Independently interpreted Old Medical Records: Independently reviewed, see HPI for relevant summary and information Pulse Oximetry: [98%] interpreted as [normal on room air] by me [Senior Caregiver: [Regular Rate, Regular rhythm, no ectopy, NSR] reviewed and interpreted by me] Additionally notably showing: [Hemodynamically stable. Laboratory workup notable for hypokalemia. No evidence of infection. No electrolyte derangement.] Tests considered but not ordered include: [CT has been ordered but the patient was not willing to perform it.] Social Determinants of Health Impact: Patient was evaluated in [facility], [facility] [place] limited access to [facility] due to below par ratio of patient to medical providers. [] Comorbid Conditions Impacting Present Evaluation and Care/Treatment: [Multiple] Management Discussions with other Healthcare Providers: [None] Treatment and Disposition Medication Management (Given or considered): []. See EMR for details Consideration for Hospitalization/Escalation/Deescalation of Care: Admission for observation has been considered, [however the patient is able to tolerate p.o., their symptoms are controlled, they are able to rely on oral medications, and their chief complaint/diagnosis can be managed on outpatient basis.] ?ED Course:?[The patient decided to leave against medical advice.] ?Shared decision making:?[] Code status:?FULL Please see the full Electronic Medical Record for full details of nursing documentation, medications list, other records of complete past medical history and conditions, vital signs, laboratory studies, and any radiologic study interpretations by radiologists. Portions of this note were completed using [employer] dictation software and as a result there may exist minor errors in spelling. I have reviewed elements of past family and social history and agree as included in note. Departure Disposition: LEFT AGAINST MEDICAL ADVICE Impression: Primary Impression: Periumbilical abdominal pain Condition: Stable Referrals: NO PRIMARY CARE PROVIDER (PCP) Signature Scribe Signature: No scribe Attestation: This note accurately reflects clinical decisions, work performed by myself, DO AL Hassan NICHOLAS M DO Apr 13, 2025 20:44
[2025-04-13 20:46] LABS: APTT 25 SECONDS (22-32); INR 1.1 INR
[2025-04-13 20:51] LABS: PRO BRAIN NATRIURETIC PEPTIDE 137 PG/ML (0-125)
[2025-04-13] MEDS: diatr meglu/diatrizoate 30ml oral sol.-(3 dose) bottle PO SCH (20:57)
[2025-04-13] MEDS: ondansetron/PF 4mg/2ml inj IV ONE (21:53)
[2025-04-13] MEDS: ketorolac trometh 30MG/ML vial 30 MG/ML VIAL IV ONE (21:54)
[2025-04-13] MEDS: normal saline 1000ML IV soln IVB ONE (21:54)
[2025-04-13 22:19] VITALS: BP 136/58; PULSE 68; RESP 16; TEMP 97.6; O2SAT 100
[2025-04-13] MEDS ORDERED: iohexol 300mg/ml 100ml inj. ONE (22:42)
== END 2025-04-13 22:54 | disposition left against medical advice (07) ==
LOC: ER 19:24
DX: R10.33 Periumbilical pain (principal); R11.2 Nausea with vomiting, unspecified; F17.200 Nicotine dependence, unspecified, uncomplicated; R06.02 Shortness of breath; F12.90 Cannabis use, unspecified, uncomplicated; Z88.2 Allergy status to sulfonamides; Z88.8 Allergy status to other drugs, medicaments and biological substances; Z79.899 Other long term (current) drug therapy
CPT/HCPCS: 36415; 80053; 83690; 83735; 83880; 84484; 85025; 85610; 85651; 85730; 86140; 96361; 96374; 96375; 99284; J1885; J2405; J7030; Q9963; Q9967

== ENCOUNTER → 2025-04-13 | Emergency (ER) | payer BC, MEDICAID ==
[~2025-04-13] VITALS: Ht 165.1 cm; Wt 77.7 kg
[~2025-04-13] MED LIST changes: +QUET50TA PO
[2025-04-13 10:05] VITALS: BP 155/91; PULSE 92; RESP 16; O2SAT 95
--- NOTE | 2025-04-13 10:32 | Physician Documentation ---
HPI ~ General Chief Complaint: Medication Request Stated Complaint: MED REQUEST Time Seen by MD: 10:18 Primary Medical Doctor: Oralia Ludwig History of Present Illness HPI Comments Patient presents to the emergency department for medication refill. Patient states that she was unable to get her medications from the [place] this morning. Denies any illness or injury that needs to be evaluated at this time. Medication Reconciliation Allergies: Coded Allergies: Sulfa (Sulfonamide Antibiotics) (Verified Allergy, Unknown, 04/13/25) prochlorperazine (Verified Allergy, Unknown, 04/13/25) Scheduled Diphenhydramine HCl (Benadryl), 1 CAP PO BID Famotidine (Famotidine), 1 TAB PO DAILY Meclizine HCl (Meclizine HCl), 1 TAB PO TID PRN Naproxen (Naproxen), 1 TAB PO Q12H Quetiapine Fumarate (Seroquel), 1 TAB PO HS Past Medical History Past Medical History: GI Bleed, Chronic Back Pain, Extremity Fracture Past Surgical History: no surgical history Patient History: Patient reports no known family medical history. Alcohol Use: Occasionally Drug Use: marijuana Lives with: Alone Lives In: Other Past Social History: She lives in [place]. Review of Systems ROS As stated above in the HPI, otherwise all systems are reviewed and negative. Physical Exam Physical Exam Vital Signs: Heart Rate: 92, Respiratory Rate: 16, BP: 155/91, Pulse Oximetry: 95, Weight: 77.700 Oxygen Flow Rate: 0 Physical Exam VITALS: Reviewed and as above. GENERAL: Alert, no apparent distress. HEENT: Normocephalic, atraumatic, PERRL, EOMI, dry mucosa, no erythema RESPIRATORY: Lungs clear, normal breath sounds, no respiratory distress. CHEST: No accessory muscle use, no retractions CV: Regular rate, rhythm, no edema, no murmur, No: JVD GI: Soft, non-tender, bowels sounds present, no rebound, guarding, or rigidity BACK: No CVA tenderness, or swelling MUSCULOSKELETAL No deformities, no edema SKIN: Warm and dry, no rash NEURO: Oriented x4, No motor or sensory deficit PSYCH: Normal mood and affect, no agitation General Appearance Patient appears generally well. Progress Results/Orders Results/Orders Completed Orders - JASMYN PINEDA Sumatriptan Succ. Inj. (Imitrex 6mg Inj. (04/13/25 10:55) Medications Received in ER Medications (Trade) Dose Ordered Sig/Sole Route PRN Reason Start Time Stop Time Status Last Admin Dose Admin (Imitrex 6mg inj.) 6 mg ONCE ONCE SQ 04/13/25 10:55 04/13/25 10:56 DC 04/13/25 10:59 6 MG Vital Signs 04/13/25 10:05 Pulse 92 Resp 16 B/P (MAP) 155/91 Pulse Ox 95 O2 Flow Rate 0 Medical Decision Making Findings Presents today for medication refill. Surgery reported. Workup required. He will follow up with her primary care provider at the [place] next week for any additional concerns. Patient refused subcu injection wanted an intramuscular injection that we do not have here patient yelled at nurse refused medication and left. Departure Disposition: HOME / SELF CARE / HOMELESS Impression: Primary Impression: General medical exam Condition: Stable Additional Instructions: Your primary care provider at the [place] next week. Referrals: NO PRIMARY CARE PROVIDER (PCP) Comments Discuss this medication with the patient and the need for her to follow up with her primary care provider at the [place] next week. Education Educated: Patient Educated regarding: diagnosis, treatment, need for follow up Signature Scribe Signature: . Attestation: Scribed for Jasmyn Pineda by LUZ Sun . 04/13/25 10:59 JASMYN PINEDA Apr 13, 2025 10:32
[2025-04-13] MEDS: SUMAtriptan succ. 6 MG/0.5ml vial SQ ONE (10:59)
== END | disposition home or self-care (01) ==
LOC: ER 09:50
DX: Z02.79 Encounter for issue of other medical certificate (principal); Z76.0 Encounter for issue of repeat prescription; F12.90 Cannabis use, unspecified, uncomplicated; Z88.2 Allergy status to sulfonamides; Z88.8 Allergy status to other drugs, medicaments and biological substances
CPT/HCPCS: 96372; 99283; J3030

== ENCOUNTER 2025-04-25 14:12 | Emergency (ER) | payer BC, MEDICAID ==
[~2025-04-25] VITALS: Ht 167.6 cm; Wt 77.5 kg
[2025-04-25 14:21] VITALS: BP 151/87; PULSE 98; RESP 18; TEMP 97.8; O2SAT 92
--- NOTE | 2025-04-25 17:41 | Physician Documentation ---
History of Present Illness ~ Chief Complaint: Rash Stated Complaint: RASH Time Seen by MD: 17:35 Primary Medical Doctor: Oralia Sanchez THIS IS A 59-YEAR-OLD FEMALE WELL KNOWN TO THIS EMERGENCY DEPARTMENT WITH MULTIPLE VISITS WHO PRESENTS TODAY FOR EVALUATION OF RASH ON HER BILATERAL UPPER EXTREMITIES IN A SEPARATE RASH TO HER BILATERAL FEET. SHE CAN NOT TELL ME EXACTLY HOW LONG THE UPPER EXTREMITY RASH HAS BEEN PRESENT BUT STATES IT HAS BEEN QUITE A WHILE. SHE ALSO TELLS ME THAT IT IS EXTREMELY ITCHY. NO PARTICULAR PALLIATING OR AGGRAVATING FACTORS. SHE DID ATTEMPT TO SEE PRIMARY CARE PROVIDER, HOWEVER THE HOME WHEN DID NOT GIVE HER ANY MEDICATION. SHE ALSO COMPLAINS OF RASH ITCHY BUT NOT PAINFUL TO HER BILATERAL FEET AND MY NAIL SKIP FALLEN OFF. SHE DENIES ANY OTHER SYMPTOMS. SHE DENIES, BUT LIKELY LIES, ABOUT NOT USING DRUGS. Medication Reconciliation Allergies: Coded Allergies: Sulfa (Sulfonamide Antibiotics) (Verified Allergy, Unknown, 04/13/25) prochlorperazine (Verified Allergy, Unknown, 04/13/25) Scheduled Diphenhydramine HCl (Benadryl), 1 CAP PO BID Famotidine (Famotidine), 1 TAB PO DAILY Meclizine HCl (Meclizine HCl), 1 TAB PO TID PRN Naproxen (Naproxen), 1 TAB PO Q12H Quetiapine Fumarate (Seroquel), 1 TAB PO HS Past Medical History Past Medical History: GI Bleed, Chronic Back Pain, Extremity Fracture Past Surgical History: no surgical history Patient History: Patient reports no known family medical history. Alcohol Use: Occasionally Drug Use: marijuana Lives with: Alone Lives In: Other Past Social History: She lives in [place]. Review of Systems ROS 10 POINT REVIEW OF SYSTEMS WAS PERFORMED AND UNLESS NOTED ABOVE IN HPI IS NEGATIVE FOR ACUTE PROCESS/COMPLAINT. Physical Exam Vital Signs: Temperature: 97.8, Source: Temporal, Heart Rate: 98, Respiratory Rate: 18, BP: 151/87, Pulse Oximetry: 92, Weight: 77.550 Physical Exam GENERAL: AWAKE, ALERT, ORIENTED, GCS 15, NO APPARENT DISTRESS, NON-TOXIC APPEARING, ANSWERS QUESTIONS, FOLLOWS COMMANDS APPROPRIATELY. HEENT: ATRAUMATIC, NORMOCEPHALIC, PUPILS EQUAL, EXTRAOCULAR MUSCLES INTACT, SCLERAE ANICTERIC, MUCUS MEMBRANES MOIST, OROPHARYNX IS CLEAR, NO STRIDOR. NECK: SUPPLE, FULL ACTIVE RANGE OF MOTION, TRACHEA MIDLINE, NO THYROMEGALY, NO LYMPHADENOPATHY, NO JVD. CARDIOVASCULAR: REGULAR RATE/RHYTHM, NO MURMURS/GALLOPS/RUBS, PULSES ARE 2+ IN ALL EXTREMITIES AND SYMMETRIC. CAPILLARY REFILL LESS THAN 2 SECONDS. PULMONARY: NONLABORED, GOOD AIR MOVEMENT ,NO RESPIRATORY DISTRESS, SPEAKING IN F ULL SENTENCES, CLEAR TO AUSCULTATION BILATERALLY, NO WHEEZING, NO RONCHI, NO RALES, NO ACCESSORY MUSCLE USE. GASTROINTESTINAL: SOFT, NON-TENDER, NON-DISTENDED, NORMAL ACTIVE BOWEL SOUNDS, NO ORGANOMEGALY, NO PULSATILE MASSES, NO CVA TENDERNESS. NEUROLOGIC: LUCID WITH NORMAL MENTAL STATUS. NORMAL FACIAL SYMMETRY. MOVES ALL EXTREMITIES SYMMETRICALLY AND WITH PURPOSE. NO TRUNCAL ATAXIA. SPEECH IS FLUID WITHOUT EVIDENCE OF DYSARTHRIA OR APHASIA, NO FOCAL DEFICITS APPRECIATED. MUSCULOSKELETAL: THERE IS FULL RANGE OF MOTION OF ALL EXTREMITIES. THERE IS NO JOINT PAIN OR JOINT SWELLING OR JOINT ERYTHEMA. THERE IS NO MUSCLE PAIN OR TE NDERNESS OR SWELLING. EXTREMITIES: WARM, WELL-PERFUSED, NO CYANOSIS, NO CLUBBING, NO EDEMA, NO ACUTE DEFORMITIES. SKIN: WARM, DRY, NO RASHES OR LESIONS, NO JAUNDICE, NO PETECHIAE ORPURPURA. NO ECCHYMOSIS. PSYCHIATRIC: NORMAL AFFECT, NORMAL INSIGHT, NORMAL CONCENTRATION. FOCUSED EXAM: THERE IS SERPENTINE INTERRUPTED RASH TO BILATERAL UPPER EXTREMITIES THAT IS CONCERNING FOR SCABIES. BILATERAL FEET EXAMINED. THERE IS A VERY OBVIOUS FUNGAL INFECTION TO BILATERAL FEET. NO BLEEDING OR PURULENT DISCHARGE. Progress Results/Orders Results/Orders Vital Signs 04/25/25 14:21 Temp 97.8 Pulse 98 Resp 18 B/P (MAP) 151/87 Pulse Ox 92 Medical Decision Making Findings Facility Status: ED Holds, [facility] process The plan was discussed with the patient, who demonstrates clear understanding of the plan and is in agreement with the plan unless otherwise noted in the chart. All questions have been answered, all concerns were addressed unless otherwise documented. I was available throughout their ED stay for frequent reassessment and questions. Differential Diagnoses (considered and possible or likely): [BILATERAL UPPER EXTREMITIES MOST LIKELY SCABIES, UNLIKELY CELLULITIS, CLINICALLY NO EVIDENCE OF ABSCESS, BILATERAL FEET IS MOST LIKELY FUNGAL INFECTION WITH THE ONYCHOMYCOSIS, UNLIKELY TRENCH FOOT, NO EVIDENCE OF GANGRENE] ??Differential Diagnoses (considered and unlikely, not requiring evaluation currently): [NO EVIDENCE OF TRAUMATIC INJURY] MDM Data Please see HPI for the following: Independent Historians and external Records Review. Historian: [Patient] Independent Historians: ?[RECORD REVIEW] Medication Management: [Reviewed medication list] Social History and determinants: [Reviewed] Please see the body of the note for the following: Any independent interpretations of ECG, imaging studies. All vitals signs/haemodynamics, ordered tests were independently reviewed and interpreted by myself. Nursing triage complaint and vitals reviewed, additional nursing notes were reviewed as available and I agree unless otherwise noted or documented in contradiction in the chart Vital Signs: Independently reviewed Labs: Independently interpreted Imaging: Independently interpreted Old Medical Records: Independently reviewed, see [facility] for relevant summary and information Pulse Oximetry: [100%] interpreted as [normal on room air] by me Additionally notably showing: [HEMODYNAMICALLY STABLE] Tests considered but not ordered include: [HEMATOLOGIC WORKUP AND IMAGING HAS BEEN CONSIDERED BUT DOES NOT APPEAR TO BE NECESSARY GIVEN CLINICAL NATURE OF DIAGNOSIS] Social Determinants of Health Impact: Patient was evaluated in [facility], [facility] [place] with limited access to healthcare due to below par ratio of patient to medical providers. [] Comorbid Conditions Impacting Present Evaluation and Care/Treatment: [HOMELESSNESS] Management Discussions with other Healthcare Providers: [NONE] Treatment and Disposition Medication Management (Given or considered): []. See EMR for details Consideration for Hospitalization/Escalation/Deescalation of Care: Admission for observation has been considered, [however the patient is able to tolerate p.o., their symptoms are controlled, they are able to rely on oral medications, and their chief complaint/diagnosis can be managed on outpatient basis.] ?ED Course:?[NO CLINICAL DETERIORATION] ?Shared decision making:?[PATIENT IS HEMODYNAMICALLY STABLE FOR DISCHARGE HOME WITH FOLLOW WITH THEIR PRIMARY CARE PROVIDER. [ ] SPECIFIC AND CAUTIOUS RETURN PRECAUTIONS PROVIDED AND DISCUSSED WITH FULL UNDERSTANDING. ANY INCIDENTAL FINDINGS WERE ALSO DISCUSSED AND FOLLOW UP RECOMMENDATIONS GIVEN. [] ALL QUESTIONS ANSWERED. PATIENT/FAMILY WERE ABLE TO VERBALIZE BACK RETURN PRECAUTIONS. PATIENT/FAMILY AGREE TO PLAN. COPIES OF IMAGING AND LABORATORY STUDIES WERE PROVIDED.] Code status:?FULL Please see the full Electronic Medical Record for full details of nursing documentation, medications list, other records of complete past medical history and conditions, vital signs, laboratory studies, and any radiologic study interpretations by radiologists. Portions of this note were completed using [employer] dictation software and as a result there may exist minor errors in spelling. I have reviewed elements of past family and social history and agree as included in note. Departure Disposition: 01 HOME / SELF CARE / HOMELESS Impression: Primary Impression: Rash Additional Impressions: Scabies Onychomycosis Condition: Stable Discharge Instructions: Fungal Nail Infection, Scabies, Adult Referrals: NO PRIMARY CARE PROVIDER (PCP) Prescriptions Clotrimazole (Clotrimazole) 1 % Cream..g. 1 APPLIC TOP Q12H for 7 Days, #15 GM 0 Refills apply to affected area(s) Prov: EVAN MELENDEZ DO 04/25/25 Efinaconazole (Jublia) 10 % Nancy.w.appl 1 APPLIC TOP DAILY for 30 Days, #8 ML 0 Refills Prov: EVAN MELENDEZ DO 04/25/25 Permethrin 5% Cream* (Elimite 5% Cream*) 60 Gm Cream.gm. 1 APPLIC TOP ONCE, #60 GM massage into skin from head to soles of feet one time, leave on for 8-14 hours then remove by thorough washing Prov: EVAN MELENDEZ DO 04/25/25 Education Educated: Patient Educated regarding: diagnosis, treatment, prognosis, need for follow up Signature Scribe Signature: NO SCRIBE Attestation: This note accurately reflects clinical decisions, work performed by myself, DO AL Hassan NICHOLAS M DO Apr 25, 2025 17:41
[2025-04-25] MEDS ORDERED: EFIN4SOL TOP (17:43)
[2025-04-25] MEDS ORDERED: PERM60CR27 TOP (17:43)
[2025-04-25] MEDS ORDERED: CLOT30CR19 TOP (17:43)
== END 2025-04-25 17:52 | disposition home or self-care (01) ==
LOC: ER 14:13
DX: B35.1 Tinea unguium (principal); B86 Scabies; R21 Rash and other nonspecific skin eruption; Z72.89 Other problems related to lifestyle; F12.90 Cannabis use, unspecified, uncomplicated; Z88.2 Allergy status to sulfonamides; Z88.8 Allergy status to other drugs, medicaments and biological substances; Z79.899 Other long term (current) drug therapy; Z60.2 Problems related to living alone
CPT/HCPCS: 99282

== ENCOUNTER 2025-04-30 20:55 | Emergency (ER) | payer BC, MEDICAID ==
[~2025-04-30] VITALS: Ht 157.5 cm; Wt 78.2 kg
[~2025-04-30 20:55] MED LIST changes: +CLOT30CR19 TOP; +EFIN4SOL TOP; +PERM60CR27 TOP
[2025-04-30 21:09] VITALS: BP 138/88; PULSE 86; RESP 16; TEMP 97.7; O2SAT 98
--- NOTE | 2025-04-30 22:32 | Physician Documentation ---
History of Present Illness Chief Complaint: See Chief Complaint Stated Complaint: SEE CHIEF COMPLAINT Time Seen by MD: 22:07 Primary Medical Doctor: Oralia Ludwig [facility] Patient is a 59-year-old female that presents to the emergency department for evaluation of sweating. Patient reports that she has been spotting today and she does not normally sweat. Patient denies any other physical complaints or mental health complaints at this time. Medication Reconciliation Allergies: Coded Allergies: albuterol (Verified Allergy, Severe, [employer], 04/30/25) Sulfa (Sulfonamide Antibiotics) (Verified Allergy, Unknown, 04/13/25) cyclobenzaprine (Verified Allergy, Unknown, SYNCOPOL EPISODE, 04/30/25) prochlorperazine (Verified Allergy, Unknown, 04/13/25) Scheduled Clotrimazole (Clotrimazole), 1 APPLIC TOP Q12H Diphenhydramine HCl (Benadryl), 1 CAP PO BID Efinaconazole (Jublia), 1 APPLIC TOP DAILY Famotidine (Famotidine), 1 TAB PO DAILY Meclizine HCl (Meclizine HCl), 1 TAB PO TID PRN Naproxen (Naproxen), 1 TAB PO Q12H Permethrin 5% Cream* (Elimite 5% Cream*), 1 APPLIC TOP ONCE Quetiapine Fumarate (Seroquel), 1 TAB PO HS Past Medical History Past Medical History: GI Bleed, Chronic Back Pain, Extremity Fracture Past Surgical History: no surgical history Patient History: Patient reports no known family medical history. Alcohol Use: Occasionally Drug Use: marijuana Lives with: Alone Lives In: Other Past Social History: She lives in [place]. Review of Systems ROS As stated above in the HPI, otherwise all systems are reviewed and negative. Physical Exam Vital Signs: Temperature: 97.7, Source: Temporal, Heart Rate: 86, Respiratory Rate: 16, BP: 138/88, Pulse Oximetry: 98, Weight: 78.200 Oxygen Flow Rate: 0 Physical Exam Scribed for Jasmyn Pineda by LUZ Sun . 04/30/25 22:27 Progress Results/Orders Results/Orders Orders - JASMYN PINEDA Stat Ekg (04/30/25 ) Vital Signs 04/30/25 21:09 Temp 97.7 Pulse 86 Resp 16 B/P (MAP) 138/88 Pulse Ox 98 O2 Flow Rate 0 Medical Decision Making Findings Patient was seen for sweating. Patient's vital signs are normal and stable patient is patient's appearance is normal no concerns at this time. Patient is not currently sweating patient does not reports sweating any time recently but reports that earlier in the day she was sweating. Reports she left the admission earlier today and will be returning there this evening if we can provide her with a voucher. Differential Dx:Considerations: Include: AAA, -Complete, - Incomplete, -Inevitable, -Missed, -Threatened, Abruptio placentae, Angina/DE, Aortic dissection, Appendicitis, Bowel obstruction, Cholangitis, Cholelithasis, Constipation, Diverticular disease, Esophageal rupture, Esophagitis, Gastritis/PUD, Gastroenteritis, GI hemorrhage, Hernia, Hepatitis, Inflammatory BD, Ischemic bowel, Ovarian cyst/torsion, Pancreatitis, PID, Porphyria, Trauma, intraabdominal, Urinary obstruction, Urinary tract infection, Urolithiasis, Other Departure Disposition: 01 HOME / SELF CARE / HOMELESS Impression: Primary Impression: Sweating Condition: Stable Discharge Instructions: Dehydration, Adult, [id number] Additional Instructions: You were evaluated in the emergency department for complaint of sweating. No sweating of concern was noted while here in the emergency department. Her vital signs look good 12 lead is negative. Please follow up with the primary care provider if your sweating continues to be bothersome. Return to the emergency department if you have any additional symptoms or any additional concerning symptoms that we discussed here today. Referrals: NO PRIMARY CARE PROVIDER (PCP) Education Educated: Patient Educated regarding: diagnosis, treatment, need for follow up Signature Scribe Signature: A Attestation: Scribed for Jasmyn Pineda by LUZ Sun . 04/30/25 22:33 JASMYN PINEDA Apr 30, 2025 22:32
--- NOTE | 2025-05-01 13:53 | ELECTROCARDIOGRAPH REPORT ---
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 Rafi Garrett Measurements Intervals Watkins Rate: 80 P: 30 AL: 156 QRS: 53 QRSD: 77 T: 24 QT: 334 QTc: 386 Interpretive Statements Sinus rhythm Low voltage, precordial leads Baseline wander in lead(s) II,V6 Electronically Signed On 05-01-2025 17:55:[address] Rafi Garrett Please click the below link to view image of tracing.
== END 2025-04-30 22:43 | disposition home or self-care (01) ==
LOC: ER 20:55
DX: R61 Generalized hyperhidrosis (principal); F12.90 Cannabis use, unspecified, uncomplicated; Z88.2 Allergy status to sulfonamides; Z88.8 Allergy status to other drugs, medicaments and biological substances
CPT/HCPCS: 93005; 99283

== ENCOUNTER 2025-06-16 16:25 | Emergency (ER) | payer BC, MEDICAID ==
[~2025-06-16] VITALS: Ht 162.6 cm; Wt 95.5 kg
[~2025-06-16 16:25] MED LIST changes: -PERM60CR27 TOP
[2025-06-16 16:38] VITALS: BP 119/70; PULSE 73; RESP 16; TEMP 97.7; O2SAT 97
--- NOTE | 2025-06-16 16:48 | Physician Documentation ---
HPI ~ General Chief Complaint: Medication Request Stated Complaint: MED REQUEST Time Seen by MD: 16:47 Primary Medical Doctor: Oralia Ludwig History of Present Illness HPI Comments 59-year-old female that presents to the emergency department for medication refill. Currently lives at the [place] patient reports that she is unable to get her medications refilled at the [facility] or admission at this time. Medication Reconciliation Allergies: Coded Allergies: albuterol (Verified Allergy, Severe, [employer], 04/30/25) Sulfa (Sulfonamide Antibiotics) (Verified Allergy, Unknown, 04/13/25) cyclobenzaprine (Verified Allergy, Unknown, SYNCOPOL EPISODE, 04/30/25) prochlorperazine (Verified Allergy, Unknown, 04/13/25) Scheduled Clotrimazole (Clotrimazole), 1 APPLIC TOP Q12H Diphenhydramine HCl (Benadryl), 1 CAP PO BID Efinaconazole (Jublia), 1 APPLIC TOP DAILY Famotidine (Famotidine), 1 TAB PO DAILY Meclizine HCl (Meclizine HCl), 1 TAB PO TID PRN Naproxen (Naproxen), 1 TAB PO Q12H Quetiapine Fumarate (Seroquel), 1 TAB PO HS Past Medical History Past Medical History: GI Bleed, Chronic Back Pain, Extremity Fracture Past Surgical History: no surgical history Patient History: Patient reports no known family medical history. Alcohol Use: Occasionally Drug Use: marijuana Lives with: Alone Lives In: Other Past Social History: She lives in [place]. Physical Exam Physical Exam Vital Signs: Temperature: 97.7, Source: Oral, Heart Rate: 73, Respiratory Rate: 16, BP: 119/70, Pulse Oximetry: 97, Weight: 95.450 Oxygen Flow Rate: 0 Progress Results/Orders Results/Orders Vital Signs 06/16/25 16:38 Temp 97.7 Pulse 73 Resp 16 B/P (MAP) 119/70 Pulse Ox 97 O2 Flow Rate 0 Departure Referrals: NO PRIMARY CARE PROVIDER (PCP) JASMYN PINEDA Jun 16, 2025 16:48
== END 2025-06-16 19:00 | disposition left against medical advice (07) ==
LOC: ER 16:26
DX: Z76.0 Encounter for issue of repeat prescription (principal); F12.90 Cannabis use, unspecified, uncomplicated; G89.29 Other chronic pain; Z88.2 Allergy status to sulfonamides; Z88.8 Allergy status to other drugs, medicaments and biological substances; Z79.899 Other long term (current) drug therapy; Z72.89 Other problems related to lifestyle
CPT/HCPCS: 99281

== ENCOUNTER 2025-07-22 20:54 | Emergency (ER) | payer BC, MEDICAID ==
[~2025-07-22] VITALS: Ht 167.6 cm; Wt 99.0 kg
[2025-07-22 20:55] VITALS: BP 145/91; PULSE 90; RESP 20; TEMP 98; O2SAT 99
== END 2025-07-22 23:10 | disposition left against medical advice (07) ==
LOC: ER 20:55
DX: Z00.00 Encounter for general adult medical examination without abnormal findings (principal); Z53.21 Procedure and treatment not carried out due to patient leaving prior to being seen by health care provider; Z88.2 Allergy status to sulfonamides; Z88.8 Allergy status to other drugs, medicaments and biological substances
CPT/HCPCS: 99281